=== PATIENT | female | born 1945 | race Caucasian/White ===

== ENCOUNTER → 2016-09-22 14:37 | Outpatient (CLI) | payer MEDICARE, OTHER ==
[2013-05-08 08:35] VITALS: BMI 22.5
[~2016-09-22 14:37] MED LIST: ADVAIR 250/501 DISK INH; ALBUTEROL SULFATE INH; AVAPRO150 MG PO; CELEXA40 MG PO; LIBRAX; MOBIC7.5 MG PO; NORCO 7.5-3251 EACH PO; PHENERGAN25 M1 PO; SPIRIVA18 MCG INH; STOOL SOFTENER240 MG PO; TOPROL XL100 MG PO; TOPROL XL50 MG
== END | disposition home or self-care (01) ==
LOC: D.CT 14:37
DX: R22.1 Localized swelling, mass and lump, neck (principal)

== ENCOUNTER → 2016-11-15 09:20 | Outpatient (CLI) | payer MEDICARE, OTHER ==
[2013-05-08 08:35] VITALS: BMI 22.5
== END | disposition home or self-care (01) ==
LOC: D.CT 09:20
DX: R93.8 Abnormal findings on diagnostic imaging of other specified body structures (principal)

== ENCOUNTER → 2017-03-31 11:48 | Outpatient (CLI) | payer MEDICARE, OTHER ==
[2013-05-08 08:35] VITALS: BMI 22.5
== END | disposition home or self-care (01) ==
LOC: D.CT 11:48 → D.RAD 13:00 → D.CT 14:00
DX: I63.9 Cerebral infarction, unspecified (principal)

== ENCOUNTER → 2017-05-15 08:56 | Outpatient (CLI) | payer MEDICARE, OTHER ==
[2013-05-08 08:35] VITALS: BMI 22.5
== END | disposition home or self-care (01) ==
LOC: D.CT 08:56
DX: R91.8 Other nonspecific abnormal finding of lung field (principal)

== ENCOUNTER → 2017-11-09 09:41 | Outpatient (CLI) | payer MEDICARE, OTHER ==
[2013-05-08 08:35] VITALS: BMI 22.5
== END | disposition home or self-care (01) ==
LOC: D.CT 09:41
DX: R91.8 Other nonspecific abnormal finding of lung field (principal)

== ENCOUNTER → 2018-04-10 11:08 | Outpatient (CLI) | payer MEDICARE, OTHER ==
[2013-05-08 08:35] VITALS: BMI 22.5
== END | disposition home or self-care (01) ==
LOC: D.US 11:08
DX: I65.23 Occlusion and stenosis of bilateral carotid arteries (principal)

== ENCOUNTER → 2018-12-05 08:51 | Outpatient (CLI) | payer MEDICARE ==
[2013-05-08 08:35] VITALS: BMI 22.5
== END | disposition home or self-care (01) ==
LOC: D.CT 08:51
PROVIDERS: ATTEND Family Medicine
DX: I65.23 Occlusion and stenosis of bilateral carotid arteries (principal)

== ENCOUNTER → 2020-03-16 08:22 | Outpatient (CLI) | payer MEDICARE, BC ==
[2013-05-08 08:35] VITALS: BMI 22.5
--- NOTE | ~2020-03-16 | HEMODYNAMI ---
PATIENT:BLOSSOM GIVENS MEDICAL RECORD: [id number] : 47 LOCATION:[facility] ADMISSION DATE: 03/16/20 Generatedon:03/16/20209:33 Patient name: BLOSSOM GIVENS Patient #: [id number] SSN: : 1945 Date of study: 03/16/2020 Page: Of Hemodynamic Procedure Report Patient Data Patient Demographics Procedure consent was obtained First Name: BLOSSOM Gender: Female Last Name: TOSHA : 1945 Middle Initial: L Age: 74 year(s) Patient #: [id number] Race: Unknown Additional ID: [id number] Contact details [address]: [address] [place] [address] [address] State: [place] City: [place] Zip code: [address] Admission Admission Data Admission Date: 03/16/2020 Admission Time: 8:22 Procedure Procedure Types Cath Procedure Peripheral Cath Diagnostic Procedure Miscellaneous Aspiration/Injection (Joint) Procedure Description Procedure Date Procedure Date: 03/16/2020 Procedure Start Time: 9:24 Procedure Staff Name Function Antonio Marquez MD Performing Physician Gama Castillo RT Monitor Procedure Data Cath Procedure Fluoroscopy Diagnostic fluoroscopy Total fluoroscopy Time: 0.3 time: 0.3 min min Diagnostic fluoroscopy Total fluoroscopy dose: 1 dose: 1 mGy mGy Hemodynamics Rest Pre Cath Intra NCS Post Cath Procedure Log Time Note 9:12:11 Gama Castillo RT (R) (CV) sent for patient. Start room use. 9:12:36 Patient received from Other to IR Alert and oriented. Tansferred to table in Supine position. 9:12:39 Signed procedure consent form obtained from patient. 9:12:41 Correct patient and procedure confirmed by team. 9:12:42 Full Disclosure recording started 9:12:43 9:12:44 Pre-procedure instructions explained to patient. 9:12:45 Pre-op teaching completed and patient verbalized understanding. 9:12:56 Is patient on blood thinner?No 9:13:12 Right Hip was prepped with betadine and draped in sterile fashion. 9:23:57 Physician arrived 9:23:57 --------ALL STOP TIME OUT------ 9:23:58 Final Timeout: patient, procedure, and site verified with staff and physician. All members of the team are in agreement. 9:24:02 Right groin site verified by team. 9:24:07 Sedation plan: Local Anesthetic Medication:Lidocaine 9:24:19 Procedure started. 9:24:29 Local anesthetic to Right Hip with Lidocaine 2% by Antonio Marquez MD.INITIAL ACCESS ONLY 9:31:04 SAFE-T PLUS MYELOGRAM TRAY opened to sterile field. 9:31:37 Procedure ended.(Physican Out) 9:31:48 Fluoroscopy time 00.30 minutes. 9:31:57 Fluoroscopy dose: 1 mGy 9:31:57 Flurop Dose total: 1 9:32:32 Isovuee 200 m 12 cc injected 9:32:49 bandaide applied to right hip site stable pt sent home Device Usage Item Name Manufacture Quantity Catalog Hospital Part Current Minimal Lot# / Number Charge Number Stock Stock Serial# Code SAFE-T [employer] 1 [id number] PLUS MYELOGRAM TRAY Signature Audit Welcome Stage Time Signature Unsigned Intra-Procedure 03/16/2020 Gama 9:33:39 AM Jonathan RT (R) (CV) [facility] [address] [place] [address]
== END | disposition home or self-care (01) ==
LOC: D.RAD 08:22
PROVIDERS: ATTEND Orthopaedic Surgery
DX: M16.11 Unilateral primary osteoarthritis, right hip (principal)

== ENCOUNTER → 2020-06-11 19:34 | Outpatient (CLI) | payer MEDICARE, BC ==
[2013-05-08 08:35] VITALS: BMI 22.5
== END | disposition home or self-care (01) ==
LOC: D.LABREF 19:34
PROVIDERS: ATTEND Orthopaedic Surgery
DX: M16.11 Unilateral primary osteoarthritis, right hip (principal)